=== PATIENT | female | born 1965 | race African-American/Black ===

== ENCOUNTER 2017-02-18 15:27 | Emergency (ER) | payer MEDICAID ==
[~2017-02-18 15:27] MED LIST: BENA5TAB3; HYDR1POW18; OTC
== END 2017-02-18 18:32 | disposition left against medical advice (07) ==
LOC: ER 18:10
DX: M79.89 Other specified soft tissue disorders (principal); Z53.21 Procedure and treatment not carried out due to patient leaving prior to being seen by health care provider
CPT/HCPCS: Z7610 ×2